=== PATIENT | female | born 1940 | race Caucasian/White ===

== ENCOUNTER 2017-08-20 06:40 | Inpatient (IN) | payer MEDICARE, BC ==
[2017-08-14 15:51] LABS: BASOPHILS % (AUTO) 0.6 % (0-1); EOSINOPHILS # (AUTO) 0.2 X10'3 (0-0.9); EOSINOPHILS % (AUTO) 2.4 % (0-6); LYMPHOCYTES # (AUTO) 1.8 X10'3 (1.1-4.8); LYMPHOCYTES % (AUTO) 25.6 % (21-51); MEAN CORPUSCULAR HEMOGLOBIN 31.7 PG (27.0-31.0); MEAN CORPUSCULAR HGB CONC 33.6 % (33.0-36.5); MEAN CORPUSCULAR VOLUME 94.2 FL (78-98); MEAN PLATELET VOLUME 7.9 FL (7.4-10.4); MONOCYTES # (AUTO) 0.9 X10'3 (0-0.9); MONOCYTES % (AUTO) 12.3 % (2-12); NEUTROPHILS # (AUTO) 4.1 X10'3 (1.8-7.7); NEUTROPHILS % (AUTO) 59.1 % (42-75); PRE OP HEMATOCRIT 44.2 % (35.0-45.0); PRE OP HEMOGLOBIN 14.9 g/dL (12.0-16.0); PRE OP PLATELET COUNT 191 X10'3 (140-440); RED CELL DISTRIBUTION WIDTH 13.3 % (11.5-14.5)
[2017-08-14 16:08] LABS: ALBUMIN 3.8 G/DL (3.4-5.0); ALKALINE PHOSPHATASE 86 IU/L (46-116); BLOOD UREA NITROGEN 18 MG/DL (7-18); BUN/CREATININE RATIO 23.7 (6.6-38.0); CHLORIDE 104 MMOL/L (99-107); CREATININE 0.76 MG/DL (0.40-0.90); PRE OP ALT 23 U/L (30-65); PRE OP ANION GAP 8 (8-16); PRE OP AST 23 U/L (10-37); PRE OP BILIRUB, TOTAL 0.4 MG/DL (0.0-1.0); PRE OP GLUCOSE 97 MG/DL (70-104); PRE OP POTASSIUM 4.3 MMOL/L (3.4-5.1); PRE OP SODIUM 138 MMOL/L (135-145); TOTAL CARBON DIOXIDE 26.4 MMOL/L (24-32); TOTAL PROTEIN 7.6 G/DL (6.4-8.2); eGFR 73 ML/MIN
[2017-08-20] VITALS (18 sets, daily range): BP systolic 115–156; BP diastolic 56–95
[~2017-08-20] VITALS: Ht 167.6 cm; Wt 101.2 kg
[~2017-08-20 06:40] MED LIST: ACET-3067 PO; ASCO500C15 PO; DOCUMENT DATE & TIME OF BETA-BLOCKER PO ONE; FLEC100T2 PO; FURO80TA87 PO; METO25TA6 PO; VANCOMYCIN INJ 1000 MG in NORMAL SALINE 250ml IV.SOLN IV ONE; ceFAZolin 2gm in dextrose, iso 100 ML IV ONE; famotidine 20mg tablet PO ONE; ringers solution, lacted 1,000 ML IV SCH; tranexamic acid inj. 1,000 MG in normal saline 100ml IV soln 90 ML IV ONE
[2017-08-20] MEDS ORDERED: ketorolac trometh. 30mg/ml inj. ONE (08:46)
[2017-08-20] MEDS ORDERED: vancomycin 1,000mg inj ONE (08:46)
[2017-08-20] MEDS ORDERED: Thrombin (Bovine) 5,000 unit vial TP ONE (08:47)
[2017-08-20] MEDS ORDERED: ROPIVAcaine 0.5% (5mg/ml) 30ml vial ONE (08:47)
[2017-08-20] MEDS ORDERED: gelatin sponge, absorbable (Gelfoam 100) sponge TP ONE (08:47)
[2017-08-20] MEDS ORDERED: tranexamic acid inj. 1,000 MG in normal saline 100ml IV soln 90 ML IV ONE (09:30)
[2017-08-20] MEDS ORDERED: BUPIVAcaine/PF 2.5 mg/ml (0.25%) 30ml vial ONE (10:35)
[2017-08-20] MEDS ORDERED: sevoflurane 250ml liquid IH ONE (10:35)
[2017-08-20] MEDS ORDERED: BUPIVAcaine 0.5% inj/PF 30 ML ONE (10:35)
[2017-08-20] MEDS ORDERED: fentaNYL/PF 50MCG/1 ML 2ML syringe ONE ×2 (10:38→11:37)
[2017-08-20] MEDS ORDERED: midazolam 2 mg/2 ml injection ONE ×2 (10:39→10:41)
[2017-08-20] MEDS ORDERED: ringers solution, lacted 1,000 ML IV SCH (12:03)
[2017-08-20] MEDS ORDERED: ondansetron/PF 4mg/2ml inj IV PRN ×2 (12:05→13:00)
[2017-08-20] MEDS ORDERED: HYDROmorphone 1 mg/ml syringe IV PRN ×4 (12:05→13:00)
[2017-08-20] MEDS ORDERED: dexamethasone sod phosphate 4mg/ml inj. ONE (12:20)
[2017-08-20] MEDS ORDERED: ondansetron/PF 4mg/2ml inj ONE (12:20)
[2017-08-20] MEDS ORDERED: epiNEPHrine 1 mg/ml inj ONE (12:20)
[2017-08-20] MEDS ORDERED: propofol inj 20 ML IV ONE (12:20)
[2017-08-20] MEDS ORDERED: glycopyrrolate 0.2mg/ml inj ONE (12:20)
[2017-08-20] MEDS ORDERED: LIDOcaine 1%/PF (10mg/ml) 5ml vial ONE (12:20)
[2017-08-20] MEDS ORDERED: ePHEDrine 50MG/ML INJ. ONE (12:33)
[2017-08-20] MEDS ORDERED: diphenhydrAMINE 25mg capsule PO PRN ×2 (13:00)
[2017-08-20] MEDS ORDERED: oxyCODONE IR 5mg (immed. release) tablet PO PRN ×2 (13:00)
[2017-08-20] MEDS ORDERED: magnesium hydroxide 30ml (MOM) UD suspension PO PRN (13:00)
[2017-08-20] MEDS ORDERED: acetaminophen w/codeine (60MG) #4 tablet PO PRN (13:00)
[2017-08-20] MEDS ORDERED: acetaminophen 325mg tablet PO PRN (13:00)
[2017-08-20] MEDS ORDERED: bisacodyl 10mg suppository rectal RC PRN (13:00)
[2017-08-20] MEDS ORDERED: tranexamic acid inj. 1,000 MG in normal saline 100ml IV soln 100 ML IV ONE (16:00)
[2017-08-20] MEDS: ketorolac tromethamine 15mg/ml inj. IV SCH ×2 (16:42→20:00)
[2017-08-20] MEDS: acetaminophen 325mg tablet PO SCH ×2 (16:44→20:00)
[2017-08-20] MEDS: gabapentin 300mg capsule PO SCH ×2 (16:55→20:08)
[2017-08-20] MEDS: cefazolin 1gm/NS 100mL 100 ML IV SCH (17:34)
[2017-08-20] MEDS ORDERED: vancomycin/NS 1 GM ADD-VANTAGE 250 ML IV SCH (20:00)
[2017-08-20] MEDS: flecainide 50mg tablet PO SCH (20:08)
[2017-08-20] MEDS: potassium cl 20mEq in 1/2 NS 1,000 ML IV SCH (20:08)
[2017-08-20] MEDS ORDERED: sennosides 8.6mg tablet PO SCH (21:00)
[2017-08-21] MEDS: cefazolin 1gm/NS 100mL 100 ML IV SCH (00:12)
[2017-08-21] MEDS: ketorolac tromethamine 15mg/ml inj. IV SCH ×2 (01:48→08:36)
[2017-08-21] MEDS: acetaminophen 325mg tablet PO SCH (01:48)
[2017-08-21] MEDS: potassium cl 20mEq in 1/2 NS 1,000 ML IV SCH (05:42)
[2017-08-21 06:00] VITALS: BP 133/73
[2017-08-21 07:01] LABS: BASOPHILS % (AUTO) 0.5 % (0-1); EOSINOPHILS % (AUTO) 0 % (0-6); HEMOGLOBIN 12.5 g/dl (12.0-16.0); LYMPHOCYTES # (AUTO) 1.2 X10'3 (1.1-4.8); LYMPHOCYTES % (AUTO) 13.4 % (21-51); MEAN CORPUSCULAR HEMOGLOBIN 31.5 PG (27.0-31.0); MEAN CORPUSCULAR HGB CONC 33.7 % (33.0-36.5); MEAN CORPUSCULAR VOLUME 93.5 FL (78-98); MEAN PLATELET VOLUME 8.4 FL (7.4-10.4); MONOCYTES # (AUTO) 1.1 X10'3 (0-0.9); MONOCYTES % (AUTO) 12.1 % (2-12); NEUTROPHILS # (AUTO) 6.6 X10'3 (1.8-7.7); PLATELET COUNT 167 X10'3 (140-440); RED BLOOD COUNT 3.95 X10'6 (4.20-5.60); RED CELL DISTRIBUTION WIDTH 13.8 % (11.5-14.5); WHITE BLOOD COUNT 8.9 X10'3 (4.5-11.0)
[2017-08-21 07:14] LABS: ANION GAP 6 (8-16); CHLORIDE 104 MMOL/L (99-107); POTASSIUM 4.1 MMOL/L (3.5-5.1); SODIUM 137 MMOL/L (135-145); TOTAL CARBON DIOXIDE 27.5 MMOL/L (24-32)
[2017-08-21] MEDS ORDERED: metoprolol tartrate 25mg tablet PO SCH (08:00)
[2017-08-21] MEDS ORDERED: furosemide 20MG tablet PO SCH (08:00)
[2017-08-21] MEDS ORDERED: ascorbic acid 500mg tablet PO SCH (08:00)
[2017-08-21] MEDS ORDERED: aspirin 325mg tablet PO SCH (08:30)
[2017-08-21] MEDS: gabapentin 300mg capsule PO SCH (08:37)
[2017-08-21] MEDS: flecainide 50mg tablet PO SCH (08:37)
[2017-08-21 10:00] VITALS: BP 104/58
[2017-08-22] MEDS ORDERED: celeCOXIB 100mg capsule PO SCH (08:00)
[2017-08-22] MEDS ORDERED: acetaminophen 325mg tablet PO PRN (13:00)
== END 2017-08-21 13:55 | disposition home or self-care (01) | DRG 483 ==
LOC: PAS IN 06:40 → EDSTATUS 09:45 → ORTHO 4S 14:10
PROVIDERS: ADMIT Orthopaedic Surgery; ATTEND Orthopaedic Surgery
PROC: 0LS30ZZ Reposition Right Upper Arm Tendon, Open Approach (ICD-10-PCS; 2017-08-20)
PROC: 3E0T3BZ Introduction of Anesthetic Agent into Peripheral Nerves and Plexi, Percutaneous Approach (ICD-10-PCS; 2017-08-20)
PROC: 0RRJ00Z Replacement of Right Shoulder Joint with Reverse Ball and Socket Synthetic Substitute, Open Approach (ICD-10-PCS; principal; 2017-08-20 10:35)
DX: M19.011 Primary osteoarthritis, right shoulder (principal); I48.2 Chronic atrial fibrillation; G89.29 Other chronic pain; I10 Essential (primary) hypertension; M75.21 Bicipital tendinitis, right shoulder; M65.811 Other synovitis and tenosynovitis, right shoulder; M75.111 Incomplete rotator cuff tear or rupture of right shoulder, not specified as traumatic; Z79.899 Other long term (current) drug therapy; Z88.8 Allergy status to other drugs, medicaments and biological substances; Z80.9 Family history of malignant neoplasm, unspecified; Z82.49 Family history of ischemic heart disease and other diseases of the circulatory system
CPT/HCPCS: 36415; 80051; 80053; 85025; 87070; 97110; 97116; 97162; 97530; J0171; J0690; J1100; J1885; J2001; J2250; J2405; J2704; J2795; J3010; J3370; J3490; J7030; J7120